=== PATIENT | female | born 1995 | race Caucasian/White ===

== ENCOUNTER 2019-03-20 15:19 | Emergency (ER) | payer BC, OTHER ==
[~2019-03-20] VITALS: Ht 175.3 cm; Wt 95.3 kg
[~2019-03-20 15:19] MED LIST: NORCO 5-325 TA1 EACH PO; SPRINTEC1 EACH PO
[2019-03-20 15:49] LABS: URINE BILIRUBIN NEGATIVE (Negative); URINE BLOOD NEGATIVE (Negative); URINE CLARITY SL CLOUDY; URINE COLOR YELLOW; URINE GLUCOSE-RANDOM* NEGATIVE (Negative); URINE KETONES NEGATIVE (Negative); URINE NITRITE-REFLEX NEGATIVE (Negative); URINE PROTEIN (DIPSTICK) NEGATIVE (Negative); URINE SPECIFIC GRAVITY >= 1.030 (1.005-1.035)
[2019-03-20 15:52] LABS: URINE LEUKOCYTES-REFLEX 2+ (Negative)
[2019-03-20 16:06] LABS: SQUAMOUS >10 Many /LPF (0-3)
[2019-03-20 16:07] LABS: BACTERIA-REFLEX >30 Many /HPF (None Seen); CASTS None Seen /LPF (None Seen); CRYSTALS None Seen /LPF (None Seen); URINE RBC 0-2 Rare /HPF (0-2)
[2019-03-20 16:50] LABS: BASOPHILS 0.7 % (0.0-2.0); HEMATOCRIT 37.6 % (37.0-47.0); HEMOGLOBIN 12.3 gm/dL (12.0-15.0); LYMPHOCYTES 28.3 % (24.0-44.0); MCH 26.4 pg (26.0-34.0); MCHC 32.6 g/dL (28.0-37.0); MCV 80.8 fL (80.0-100.0); MONOCYTES 9.3 % (1.0-8.0); PLATELET COUNT 226 thou/uL (150-400); POLYS 60.7 % (36.0-66.0); RBC 4.65 mil/uL (4.20-5.00); WBC 6.6 thou/uL (4.0-11.0)
[2019-03-20 16:58] LABS: CALCIUM 9.3 mg/dL (8.5-10.1); CREATININE 0.8 mg/dL (0.6-1.0); POTASSIUM 3.4 mmol/L (3.5-5.1)
[2019-03-20 17:04] LABS: ALBUMIN 3.8 g/dL (3.4-5.0); TOTAL BILIRUBIN 0.4 mg/dL (<0.1-1.0); TOTAL PROTEIN 7.6 g/dL (6.4-8.2)
[2019-03-20 18:04] VITALS: BP 132/70
[2019-03-20] MEDS ORDERED: OMEPRAZOLE 20 M20 M1 PO (18:07)
[2019-03-20] MEDS ORDERED: KEFLEX500 M1 PO (18:07)
== END 2019-03-20 18:05 | disposition home or self-care (01) ==
LOC: ER 15:19
PROVIDERS: Physician Assistant
DX: N39.0 Urinary tract infection, site not specified (principal)